=== PATIENT | male | born 1940 | race Caucasian/White ===

== ENCOUNTER → 2020-04-10 | Outpatient (CLI) | payer MEDICARE, BC | LOC: RAD 13:24 → EDBD 13:24 → RAD 13:30 | PROVIDERS: Family Medicine | DX: K80.21 Calculus of gallbladder without cholecystitis with obstruction (principal); K86.9 Disease of pancreas, unspecified; K83.8 Other specified diseases of biliary tract | CPT/HCPCS: Q9967 ==